=== PATIENT | female | born 1995 | race Two or more races ===

== ENCOUNTER 2017-01-22 23:37 | Observation (INO) | payer SELFPAY ==
[2014-10-30 16:40] VITALS: BP 102/68
[~2017-01-22 23:37] MED LIST: ACET-704 PO; IBUP-1060 PO
[2017-01-23 04:23] LABS: BILIRUBIN,URINE NEGATIVE (NEG); GLUCOSE,URINE NEGATIVE (NEG); NITRITE,URINE NEGATIVE (NEG); PROTEIN,URINE NEGATIVE (NEG-TRACE); UROBILINOGEN,URINE 0.2 mg/dL (0.2 mg/dL)
[2017-01-23 04:30] LABS: BARBITURATES NEG (NEG); BENZODIAZEPINES NEG (NEG); CANNABINOIDS NEG (NEG); COCAINE NEG (NEG); METHADONE NEG (NEG); OPIATES NEG (NEG); PHENCYCLIDINE NEG (NEG)
[2017-01-23 04:50] LABS: BACTERIA,URINE MODERATE /HPF (0-FEW); RBC,URINE 0 /HPF (0-2); SQUAMOUS EPITHELIAL CELL,UR FEW /LPF; WBC,URINE OCC /HPF (0-4)
== END 2017-01-23 01:30 | disposition home or self-care (01) ==
LOC: 3 SO LND 23:37
PROVIDERS: ADMIT Specialist; ATTEND Specialist
DX: O62.9 Abnormality of forces of labor, unspecified (principal); Z3A.37 37 weeks gestation of pregnancy
CPT/HCPCS: 81001; 87086; G0378; G0379; G0481

== ENCOUNTER 2017-02-01 23:17 | Inpatient (IN) | payer SELFPAY ==
[~2017-02-01] VITALS: Ht 152.4 cm; Wt 51.3 kg
[2017-02-01] MEDS ORDERED: 0.9 % SODIUM CHLORIDE 10 ML DISP.SYRIN. IV PRN (23:45)
[2017-02-01] MEDS ORDERED: fentaNYL PF VIAL 100 MCG/2 ML VIAL IV PRN (23:45)
[2017-02-01] MEDS ORDERED: LIDOCAINE 1% PF 30 ML VIAL. INJ PRN (23:45)
[2017-02-01] MEDS ORDERED: MAG HYDROX/ALUMINUM HYD/SIMETH 30 ML ORAL.SUSP PO PRN (23:45)
[2017-02-01] MEDS ORDERED: TERBUTALINE 1 MG/ML VIAL. SQ PRN (23:45)
[2017-02-01] MEDS ORDERED: ZOLPIDEM 5 MG TABLET. PO PRN (23:45)
[2017-02-01] MEDS ORDERED: ACETAMINOPHEN 325 MG TABLET. PO PRN (23:45)
[2017-02-01] MEDS ORDERED: IBUPROFEN 800 MG TABLET. PO PRN (23:45)
[2017-02-01] MEDS ORDERED: BUTORPHANOL 2 MG/ML VIAL. IV PRN (23:45)
[2017-02-01] MEDS ORDERED: OXYTOCIN 30 UNIT/500 ML PREMIX 500 ML IV PRN (23:45)
[2017-02-01] MEDS ORDERED: CITRIC ACID/SODIUM CITRATE 30 ML SOLUTION. PO PRN (23:45)
[2017-02-01] MEDS ORDERED: ONDANSETRON PF 4 MG/2 ML VIAL. IV PRN (23:45)
[2017-02-02] VITALS: BP 115/70
[2017-02-02] MEDS ORDERED: AMPICILLIN SODIUM 2 GM in IV NORMAL SALINE 100ML 100 ML IV ONE ×2
[2017-02-02 00:02] LABS: BILIRUBIN,URINE NEGATIVE (NEG); GLUCOSE,URINE NEGATIVE (NEG); NITRITE,URINE NEGATIVE (NEG); PROTEIN,URINE NEGATIVE (NEG-TRACE)
[2017-02-02 00:08] LABS: BARBITURATES NEG (NEG); BENZODIAZEPINES NEG (NEG); CANNABINOIDS NEG (NEG); COCAINE NEG (NEG); METHADONE NEG (NEG); OPIATES NEG (NEG); PHENCYCLIDINE NEG (NEG)
[2017-02-02] MEDS: IV RINGERS,LACTATED 1000ML 1,000 ML IV SCH ×4 (00:08→07:37)
[2017-02-02 00:11] LABS: BACTERIA,URINE MODERATE /HPF (0-FEW); RBC,URINE 0 /HPF (0-2); SQUAMOUS EPITHELIAL CELL,UR MOD /LPF
[2017-02-02 01:01] LABS: HEMATOCRIT 30.2 % (36.0-47.0); HEMOGLOBIN 10.1 g/dL (12.0-15.5); RED BLOOD COUNT 3.74 x10^6/uL (3.50-5.40); RED CELL DISTRIBUTION WIDTH 13.1 % (11.5-14.5); WHITE BLOOD COUNT 10.9 x10^3/uL (4.0-11.0)
[2017-02-02] MEDS ORDERED: PNV1TABL25 PO (01:05)
[2017-02-02 02:00] LABS: ALBUMIN/GLOBULIN RATIO 0.7 (1.0-1.7); CALCIUM 8.8 mg/dL (8.5-10.1); CREATININE 0.6 mg/dL (0.6-1.0); GFR 127.5; POTASSIUM 3.8 mmol/L (3.5-5.1); TOTAL BILIRUBIN 0.5 mg/dL (0.2-1.0); TOTAL PROTEIN 7.1 g/dL (6.4-8.2)
[2017-02-02] MEDS ORDERED: ROPIVacaine 0.2% IN 0.9%NACL PF 40 MG/20 ML DISP.SYRIN. ONE (02:13)
[2017-02-02] MEDS ORDERED: L&D EPIDURAL CASSETTE 100 ML EP ONE (02:13)
[2017-02-02] MEDS ORDERED: ePHEDrine PF IN SALINE 50 MG/5 ML DISP.SYRIN IV PRN (02:45)
[2017-02-02] MEDS ORDERED: NALOXONE 0.4 MG/ML VIAL. IV PRN (02:45)
[2017-02-02] MEDS ORDERED: fentaNYL PF VIAL 100 MCG/2 ML VIAL EPI ONE (02:45)
[2017-02-02] MEDS ORDERED: ONDANSETRON PF 4 MG/2 ML VIAL. IV PRN (02:45)
[2017-02-02] MEDS ORDERED: ROPIVacaine 0.2% PF 10 ML VIAL. EPI ONE (02:45)
[2017-02-02] MEDS: L&D EPIDURAL CASSETTE 100 ML EP PRN ×2 (02:48→08:47)
[2017-02-02] MEDS: AMPICILLIN SODIUM 1 GM in IV NORMAL SALINE 50ML 50 ML IV SCH ×2 (03:53→07:38)
[2017-02-02] MEDS ORDERED: OXYTOCIN in NORMAL SALINE PREMIX 30 UNIT/500 ML BAG. IV ONE (06:30)
[2017-02-02] MEDS ORDERED: BENZOCAINE 20% TOPICAL AEROSOL SPRAY 57GM CAN. TP PRN (09:00)
[2017-02-02] MEDS ORDERED: MAGNESIUM HYDROXIDE 2,400 MG/30 ML ORAL.SUSP. PO PRN (09:00)
[2017-02-02] MEDS ORDERED: ZOLPIDEM 5 MG TABLET. PO PRN (09:00)
[2017-02-02] MEDS ORDERED: PHENYLEPH/MINERAL OIL/PETROLAT RECTAL OINTMENT 28GM TUBE. RC PRN (09:00)
[2017-02-02] MEDS ORDERED: OXYTOCIN 30 UNIT/500 ML PREMIX 500 ML IV PRN (09:00)
[2017-02-02] MEDS ORDERED: MAG HYDROX/ALUMINUM HYD/SIMETH 30 ML ORAL.SUSP PO PRN (09:00)
[2017-02-02] MEDS ORDERED: ACETAMINOPHEN 325 MG TABLET. PO PRN (09:00)
[2017-02-02] MEDS ORDERED: HYDROCORTISONE 1% TOPICAL OINTMENT 30GM TUBE. TP PRN (09:00)
[2017-02-02] MEDS ORDERED: HYDROcodone/APAP 5/325MG 1 TAB TABLET PO PRN (09:00)
[2017-02-02] MEDS ORDERED: SIMETHICONE 80 MG TAB.CHEW PO PRN (09:00)
[2017-02-02] MEDS ORDERED: 0.9 % SODIUM CHLORIDE 10 ML DISP.SYRIN. IV PRN (09:00)
[2017-02-02] MEDS ORDERED: diphenhydrAMINE HCL 25 MG CAPSULE PO PRN (09:00)
--- NOTE | 2017-02-02 09:02 | PDOC1 ---
OB - History Hx of Present Care: Good Care Ultrasounds: Normal mid trimester US Obstetrical Complications: None Medical Complications: None Past Family/Social History * Past Medical, Surgical, Family and Obstetric Histories reviewed from chart. Blood Type: O+ Rubella: Immune RPR/VDRL: Negative HBsAG: Negative OB - Chief Complaint & HPI Date of Admission: Date of Admission: Feb 01, 2017 at 23:17 Chief Complaint/History : 4 Para: 2 EDC: Feb 06, 2017 Reason for admission: active labor Admission Nurse Assessment Rev: Yes Problems: OB - Admission Exam Physical Exam Vitals: VS - Last 72 Hours, by Label Date Time Temp Pulse Resp B/P (MAP) Pulse Ox O2 Delivery O2 Flow Rate FiO2 02/02/17 08:47 18 Room Air 02/02/17 03:15 18 99 Room Air 02/02/17 02:48 18 99 Room Air 02/02/17 00:50 18 Room Air 02/02/17 00:13 18 99 Room Air 02/02/17 00:00 97.6 122 18 115/70 (85) 99 Room Air 97.6 HEENT: Normal, Nasal Mucosa Normal, Oropharynx Normal, Moist Membranes, Fontanelles Normal Heart: Regular Rate Lungs: Clear, Equal Abdomen: Gravid Extremities: Normal Pulses, No tenderness or swelling Reflexes: Normal Cervical Dilatation: 3cm Effacement: 50% Station: -1 Membranes: Intact Amniotic Fluid: Clear Heart Rate: Normal Accelerations: Accelerations Present Decelerations: No decelerations Short Term Variability: Present Alf Variability: Moderate Contractions on Admission: < 5 Minutes Apart Intensity: Moderate Assessment/Plan Assessment/Plan TIUP labor ACS JUNG BLEDSOE MD Feb 02, 2017 09:02
[2017-02-02] MEDS: IBUPROFEN 800 MG TABLET. PO SCH ×2 (11:52→22:00)
[2017-02-02 12:00] VITALS: BP 134/66
[2017-02-02 13:30] VITALS: BP 105/55
[2017-02-02 16:25] VITALS: BP 109/52
[2017-02-02 23:00] VITALS: BP 108/67
[2017-02-03 05:19] LABS: RPR REFLEX Non Reactive (Non Reactive)
[2017-02-03] MEDS: IBUPROFEN 800 MG TABLET. PO SCH ×3 (06:00→18:14)
[2017-02-03 06:15] VITALS: BP 107/69
[2017-02-03 08:05] VITALS: BP 100/55
[2017-02-03] MEDS: FERROUS SULFATE 325 MG TABLET. PO SCH ×2 (08:10→18:14)
[2017-02-03 11:50] VITALS: BP 102/60
--- NOTE | 2017-02-03 13:08 | PDOC ---
Provider Note Provider Note Doing well VSS uterus NTTP FU in AM JUNG BLEDSOE MD Feb 03, 2017 13:07
[2017-02-03 16:50] VITALS: BP 109/74
[2017-02-03 20:00] VITALS: BP 115/82
[2017-02-04 04:00] VITALS: BP 114/80
--- NOTE | 2017-02-04 05:01 | PDOC3 ---
OB DISCHARGE SUMMARY DATE OF ADMISSION: 02/02/17 DATE OF DISCHARGE: 02/04/17 REASON FOR ADMISSION: Onset of labor PROCEDURES: Ultrasound INTRAPARTUM PROCEDURES: Spontanous Vag Deliv PROCEDURES: None OPERATIONS: None DISCHARGE DIAGNOSIS: Term Delivered DISCHARGE INFORMATION: Activity, Diet HOSPITAL COURSE unremarkable CONDITION AT DISCHARGE stable JUNG BLEDSOE MD Feb 04, 2017 05:01
[2017-02-04] MEDS ORDERED: HYDR-971 PO (05:02)
[2017-02-04] MEDS ORDERED: NAPR500T3 PO (05:02)
--- NOTE | 2017-02-04 05:46 | PDOC ---
VAGINAL DELIVERY DATE DATE: 02/04/17 TIME: 05:44 : 4 Para: 3 EDC: Feb 06, 2017 VAGINAL DELIVERY: VTX VACCUM ASSISTED: No PLACENTA: Spontaneous SEX: Female WEIGHT 5/15 Nuchal Cord: No Amniotic Fluid: Clear PAIN: Epidural EPISIOTOMY: No EXTENSION: No EBL 300cc COMPLICATIONS none CONDITION Stable Signs of Intrauterine Infectio: None Shoulder Dystocia: No DIAGNOSIS TIUP del Problems: JUNG BLEDSOE MD Feb 04, 2017 05:46
[2017-02-04 08:00] VITALS: BP 114/73
[2017-02-04] MEDS: IBUPROFEN 800 MG TABLET. PO SCH (08:05)
[2017-02-04] MEDS: FERROUS SULFATE 325 MG TABLET. PO SCH (08:05)
[2017-02-04 13:30] VITALS: BP 112/72
== END 2017-02-04 13:30 | disposition home or self-care (01) | DRG 775 ==
LOC: OBSVTOIN 23:17 → 3 SO LND 23:17 → 3 NORTH 02-02 12:00
PROVIDERS: ADMIT Specialist; ATTEND Specialist
PROC: 10E0XZZ Delivery of Products of Conception, External Approach (ICD-10-PCS; principal; 2017-02-01)
DX: O80 Encounter for full-term uncomplicated delivery (principal); Z3A.39 39 weeks gestation of pregnancy; Z37.0 Single live birth
CPT/HCPCS: 36415; 80053; 81001; 85014; 85027; 86593; 86850; 86900; 86901; 87086; G0481; J0290; J2590; J2795; J7120

== ENCOUNTER → 2020-12-21 | Outpatient (CLI) | payer SELFPAY ==
[2019-01-22 12:14] VITALS: BP 118/77
[~2020-12-21] MED LIST changes: +HYDR-3164 PO; +NAPR-514 PO; +PNV1TABL25 PO
== END ==
LOC: LAB 12:41
PROVIDERS: ATTEND Obstetrics & Gynecology
DX: Z01.812 Encounter for preprocedural laboratory examination (principal); Z20.822 Contact with and (suspected) exposure to COVID-19
CPT/HCPCS: U0003; U0005

== ENCOUNTER 2020-12-22 20:57 | Inpatient (IN) | payer SELFPAY ==
[~2020-12-22] VITALS: Ht 160 cm; Wt 54.4 kg
[2020-12-22] MEDS ORDERED: IV NORMAL SALINE 1000ML BAG 1,000 ML IV PRN (21:00)
[2020-12-22] MEDS ORDERED: OXYTOCIN 30 UNIT/500 ML PREMIX 500 ML IV PRN ×2 (21:00)
[2020-12-22] MEDS ORDERED: 0.9 % SODIUM CHLORIDE 10 ML DISP.SYRIN. IV PRN (21:00)
[2020-12-22] MEDS ORDERED: ACETAMINOPHEN 325 MG TABLET. PO PRN (21:00)
[2020-12-22] MEDS ORDERED: LIDOCAINE 1% PF 30 ML VIAL. INJ PRN (21:00)
[2020-12-22] MEDS ORDERED: TERBUTALINE 1 MG/ML VIAL. SQ PRN (21:00)
[2020-12-22] MEDS ORDERED: BUTORPHANOL 2 MG/ML VIAL. IVP PRN ×2 (21:00)
[2020-12-22 21:32] LABS: BASO # 0.1 x10^3/uL (0.0-0.2); BASO % 1 % (0-3); EOS # 0.1 x10^3/uL (0.0-0.7); EOS % 1 % (0-3); HEMATOCRIT 34.4 % (36.0-47.0); HEMOGLOBIN 11.4 g/dL (12.0-15.5); LYMPH # 2.8 x10^3/uL (1.0-4.8); LYMPH % 20 % (24-48); MEAN CORPUSCULAR HEMOGLOBIN 28 pg (25-35); MEAN CORPUSCULAR HGB CONC 33 g/dL (31-37); MEAN CORPUSCULAR VOLUME 84 fL (79-100); MONO # 0.9 x10^3/uL (0.0-1.1); MONO % 6 % (0-9); NEUT # 10.1 x10^3/uL (1.8-7.7); NEUT % 73 % (31-73); PLATELET COUNT 281 x10^3/uL (140-400); RED BLOOD COUNT 4.11 x10^6/uL (3.50-5.40); WHITE BLOOD COUNT 13.9 x10^3/uL (4.0-11.0)
[2020-12-22 21:36] LABS: BILIRUBIN,URINE NEGATIVE (NEG); CLARITY,URINE CLEAR; COLOR,URINE YELLOW; NITRITE,URINE NEGATIVE (NEG); PROTEIN,URINE NEGATIVE (NEG-TRACE); UROBILINOGEN,URINE 0.2 mg/dL (0.2 mg/dL)
[2020-12-22 21:42] LABS: BARBITURATES NEG (NEG); BENZODIAZEPINES NEG (NEG); CANNABINOIDS NEG (NEG); COCAINE NEG (NEG); METHADONE NEG (NEG); OPIATES NEG (NEG); PHENCYCLIDINE NEG (NEG)
[2020-12-22 21:43] LABS: AMPHETAMINE/METHAMPHETAMINE NEG (NEG); BACTERIA,URINE MODERATE /HPF (0-FEW)
[2020-12-22 21:44] LABS: RBC,URINE 0 /HPF (0-2); WBC,URINE OCC /HPF (0-4)
[2020-12-22 21:55] VITALS: BP 102/68
[2020-12-22] MEDS ORDERED: ROPIVacaine 0.2% PF 10 ML VIAL. ONE ×2 (22:28→23:00)
[2020-12-22] MEDS ORDERED: fentaNYL PF VIAL 100 MCG/2 ML VIAL ONE (22:28)
[2020-12-22] MEDS ORDERED: L&D EPIDURAL SYRINGE 50 ML ONE (22:28)
[2020-12-22] MEDS: IV RINGERS,LACTATED 1000ML 1,000 ML IV SCH ×2 (22:36→22:37)
[2020-12-22] MEDS ORDERED: L&D EPIDURAL 50 ML SYRINGE. ONE (23:00)
--- NOTE | 2020-12-23 01:20 | PDOC ---
VAGINAL DELIVERY DATE DATE: 12/23/20 TIME: 01:20 TIME Patient delivered a viable female over intact perineum at 0114. Wt 5 lb 9 oz. Apgars 8/9. Placenta delivered spontaneously, intact with 3VC. No lacerations noted. Good hemostasis noted. 20 U of Pit given with IVF. EBL 100cc. WEIGHT Weight [ ] ROSY GUERRERO MD Dec 23, 2020 01:20
--- NOTE | 2020-12-23 01:20 | PDOC1 ---
POUNCER MACHINE H&P Date of Admission: Date of Admission: Dec 22, 2020 at 20:57 History of Present Illness: EDC: 12/30/20 LMP: 06/23/20 25y @ 38.6 by L=5 presents to L&D for ctxs. She was scheduled for an indxn the following day. On presentation the pt was found to be 4 cm dilated. The pt has had a relatively uncomplicated . PMH: Denies PSH: Denies Meds: PNV, Fe All: NKDA OBHx: TSVD x 4 SH: no tob, no EtOH FH: noncontributory Medications: Meds: Current Medications Medications (Trade) Dose Ordered Sig/Arlene Route PRN Reason Start Time Stop Time Status Last Admin Dose Admin Ringer's Solution 1,000 ml @ 125 mls/hr Q8H IV 12/22/20 21:00 12/22/20 22:37 Allergies: Coded Allergies: No Known Drug Allergies (Unverified , 12/21/13) Physical Exam: Vital Signs: Vital Signs Date Time Temp Pulse Resp B/P (MAP) Pulse Ox O2 Delivery O2 Flow Rate FiO2 12/22/20 21:55 98.1 102 20 102/68 (79) Room Air 98.1 PE: GENERAL: No apparent distress. Alert and oriented. HEENT: Head normocephalic, atraumatic. NECK: Supple LUNGS: Clear to auscultation. HEART: RRR, S1, S2 present, pulses intact ABDOMEN: Soft, positive bowel sounds. EXTREMITIES: No cyanosis or edema. NEUROLOGIC: Normal speech, normal tone PSYCHIATRIC: Normal affect, normal mood. SKIN: No ulceration. FHT: 130s +acels/no decels/mLTV [place]: 2 min SVE: 7/90/-2 Labs: Laboratory Tests Test 12/22/20 21:00 12/22/20 21:21 Urine Collection Type Unknown Urine Color Yellow Urine Clarity Clear Urine pH 7.0 (<5.0-8.0) Urine Specific [place] 1.015 (1.000-1.030) Urine Protein Negative mg/dL (NEG-TRACE) Urine Glucose (UA) Negative mg/dL (NEG) Urine Ketones (Stick) Negative mg/dL (NEG) Urine Blood Negative (NEG) Urine Nitrite Negative (NEG) Urine Bilirubin Negative (NEG) Urine Urobilinogen Dipstick 0.2 mg/dL (0.2 mg/dL) Urine Leukocyte Esterase Negative (NEG) Urine RBC 0 /HPF (0-2) Urine WBC Occ /HPF (0-4) Urine Squamous Epithelial Cells Mod /LPF Urine Bacteria Moderate /HPF (0-FEW) Urine Opiates Screen Neg (NEG) Urine Methadone Screen Neg (NEG) Urine Barbiturates Neg (NEG) Urine Phencyclidine Screen Neg (NEG) Urine Amphetamine/Methamphetamine Neg (NEG) Urine Benzodiazepines Screen Neg (NEG) Urine Cocaine Screen Neg (NEG) Urine Cannabinoids Screen Neg (NEG) Urine Ethyl Alcohol Neg (NEG) White Blood Count 13.9 x10^3/uL (4.0-11.0) H Red Blood Count 4.11 x10^6/uL (3.50-5.40) Hemoglobin 11.4 g/dL (12.0-15.5) L Hematocrit 34.4 % (36.0-47.0) L Mean Corpuscular Volume 84 fL (79-100) Mean Corpuscular Hemoglobin 28 pg (25-35) Mean Corpuscular Hemoglobin Concent 33 g/dL (31-37) Red Cell Distribution Width 13.0 % (11.5-14.5) Platelet Count 281 x10^3/uL (140-400) Neutrophils (%) (Auto) 73 % (31-73) Lymphocytes (%) (Auto) 20 % (24-48) L Monocytes (%) (Auto) 6 % (0-9) Eosinophils (%) (Auto) 1 % (0-3) Basophils (%) (Auto) 1 % (0-3) Neutrophils # (Auto) 10.1 x10^3/uL (1.8-7.7) H Lymphocytes # (Auto) 2.8 x10^3/uL (1.0-4.8) Monocytes # (Auto) 0.9 x10^3/uL (0.0-1.1) Eosinophils # (Auto) 0.1 x10^3/uL (0.0-0.7) Basophils # (Auto) 0.1 x10^3/uL (0.0-0.2) Laboratory Tests 12/22/20 21:21 Laboratory Tests 12/22/20 21:21 Assessment & Plan: A/P 25y @ 38.6 by L=5 1.) Active labor 2.) Anemia - Hgb 9.9, on Fe 3.) Gap in care b/t 16-31 wk 4.) Flu vaccine given 06/23/21 5.) TDAP given 10/28/20 6.) Fetus cat I FHT 7.) GBS neg ROSY GUERRERO MD Dec 23, 2020 01:20
[2020-12-23] MEDS ORDERED: OXYTOCIN 30 UNIT/500 ML PREMIX 500 ML IV PRN (01:30)
[2020-12-23] MEDS ORDERED: PHENYLEPH/MINERAL OIL/PETROLAT RECTAL OINTMENT TUBE. RC PRN (01:30)
[2020-12-23] MEDS ORDERED: 0.9 % SODIUM CHLORIDE 10 ML DISP.SYRIN. IV PRN (01:30)
[2020-12-23] MEDS ORDERED: BENZOCAINE 20% TOPICAL AEROSOL SPRAY 57GM CAN. TP PRN (01:30)
[2020-12-23] MEDS ORDERED: TDaP (Adacel) per PROTOCOL. MC PRN (01:30)
[2020-12-23] MEDS ORDERED: ZOLPIDEM 5 MG TABLET. PO PRN (01:30)
[2020-12-23] MEDS ORDERED: MAGNESIUM HYDROXIDE 2,400 MG/30 ML ORAL.SUSP. PO PRN (01:30)
[2020-12-23] MEDS ORDERED: MAG HYDROX/ALUMINUM HYD/SIMETH 30 ML ORAL.SUSP PO PRN (01:30)
[2020-12-23] MEDS ORDERED: MMR per PROTOCOL. MC PRN (01:30)
[2020-12-23] MEDS ORDERED: diphenhydrAMINE HCL 25 MG CAPSULE PO PRN (01:30)
[2020-12-23] MEDS ORDERED: HYDROCORTISONE 1% TOPICAL OINTMENT 30GM TUBE. TP PRN (01:30)
[2020-12-23] MEDS ORDERED: ACETAMINOPHEN 325 MG TABLET. PO PRN (01:30)
[2020-12-23] MEDS ORDERED: oxyCODONE/APAP 5/325 1 TAB TABLET PO PRN (01:30)
[2020-12-23] MEDS ORDERED: SIMETHICONE 80 MG TAB.CHEW PO PRN (01:30)
[2020-12-23] MEDS: IBUPROFEN 400 MG TABLET. PO PRN ×3 (03:17→19:42)
[2020-12-23 03:30] VITALS: BP 113/55
[2020-12-23 04:37] VITALS: BP 107/46
[2020-12-23 07:50] VITALS: BP 91/47
[2020-12-23] MEDS: DOCUSATE SODIUM 100 MG CAPSULE. PO PRN (09:42)
[2020-12-23] MEDS: PRENATAL MULTIVITAMIN TABLET. PO SCH (09:42)
[2020-12-23 12:10] VITALS: BP 114/57
[2020-12-23 16:15] VITALS: BP 113/54
[2020-12-23 19:50] VITALS: BP 96/54
[2020-12-24 04:38] VITALS: BP 101/56
[2020-12-24 04:50] LABS: HEMATOCRIT 32.6 % (36.0-47.0); HEMOGLOBIN 10.8 g/dL (12.0-15.5); RED BLOOD COUNT 3.86 x10^6/uL (3.50-5.40); RED CELL DISTRIBUTION WIDTH 13.1 % (11.5-14.5); WHITE BLOOD COUNT 15.4 x10^3/uL (4.0-11.0)
[2020-12-24] MEDS: DOCUSATE SODIUM 100 MG CAPSULE. PO PRN ×2 (07:15→20:54)
[2020-12-24] MEDS: PRENATAL MULTIVITAMIN TABLET. PO SCH (07:16)
[2020-12-24] MEDS: IBUPROFEN 400 MG TABLET. PO PRN ×3 (07:16→21:53)
[2020-12-24 07:30] VITALS: BP 109/59
[2020-12-24] MEDS ORDERED: FERROUS SULFATE 325 MG TABLET. PO SCH (08:00)
--- NOTE | 2020-12-24 09:37 | PDOC ---
BREAKER UP MACHINE OPERATOR PROGRESS NOTE Date of Service: DATE: 12/24/20 TIME: 09:36 Subjective: Pt with good pain control. Pradip PO. Voiding. Minimal lochia Objective: Vital Signs: Vital Signs Date Time Temp Pulse Resp B/P (MAP) Pulse Ox O2 Delivery O2 Flow Rate FiO2 12/23/20 07:50 98.0 72 16 91/47 (62) 99 Room Air 98.0 Vital Signs Date Time Temp Pulse Resp B/P (MAP) Pulse Ox O2 Delivery O2 Flow Rate FiO2 12/24/20 07:30 97.7 68 18 109/59 (76) 97 Room Air 97.7 Labs: Laboratory Tests Test 12/24/20 04:32 White Blood Count 15.4 x10^3/uL (4.0-11.0) H Red Blood Count 3.86 x10^6/uL (3.50-5.40) Hemoglobin 10.8 g/dL (12.0-15.5) L Hematocrit 32.6 % (36.0-47.0) L Mean Corpuscular Volume 84 fL (79-100) Mean Corpuscular Hemoglobin 28 pg (25-35) Mean Corpuscular Hemoglobin Concent 33 g/dL (31-37) Red Cell Distribution Width 13.1 % (11.5-14.5) Platelet Count 250 x10^3/uL (140-400) Laboratory Tests 12/24/20 04:32 Laboratory Tests 12/24/20 04:32 Physical Exam: GENERAL: No apparent distress. Alert and oriented. HEENT: Head normocephalic, atraumatic. NECK: Supple LUNGS: Clear to auscultation. HEART: RRR, S1, S2 present, pulses intact ABDOMEN: Soft, positive bowel sounds. EXTREMITIES: No cyanosis or edema. NEUROLOGIC: Normal speech, normal tone PSYCHIATRIC: Normal affect, normal mood. SKIN: No ulceration. FFNT below umb No C/C/E Assessment & Plan: A/P 25y PPD #1 s/p 1.) PP doing well 2.) Anemia - Hgb 11.4 -> 10.8 3.) Flu vaccine given 06/23/21 4.) TDAP given 10/28/20 5.) Cont PP ROSY Ricketts MD Dec 24, 2020 09:37
[2020-12-24 13:00] VITALS: BP 125/66
[2020-12-24 16:38] VITALS: BP 114/55
[2020-12-24 20:45] VITALS: BP 109/56
[2020-12-25] MEDS: IBUPROFEN 400 MG TABLET. PO PRN (06:10)
[2020-12-25 06:14] VITALS: BP 108/72
[2020-12-25 08:30] VITALS: BP_SYST 101; BP_SYST 136; BP_DIAS 59; BP_DIAS 73
[2020-12-25] MEDS ORDERED: IBUP-1060 PO (09:18)
[2020-12-25] MEDS ORDERED: DOCU-109 PO (09:18)
--- NOTE | 2020-12-25 09:49 | PDOC ---
NUCLEAR POWERPLANT MECHANIC HELPER PROGRESS NOTE Date of Service: DATE: 12/25/20 TIME: 09:48 Subjective: Pt with good pain control. Pradip PO. Voiding. Minimal lochia Objective: Vital Signs: Vital Signs Date Time Temp Pulse Resp B/P (MAP) Pulse Ox O2 Delivery O2 Flow Rate FiO2 12/24/20 07:30 97.7 68 18 109/59 (76) 97 Room Air 97.7 Vital Signs Date Time Temp Pulse Resp B/P (MAP) Pulse Ox O2 Delivery O2 Flow Rate FiO2 12/25/20 08:30 98.4 81 18 101/59 (73) 99 Room Air 98.4 Physical Exam: GENERAL: No apparent distress. Alert and oriented. HEENT: Head normocephalic, atraumatic. NECK: Supple LUNGS: Clear to auscultation. HEART: RRR, S1, S2 present, pulses intact ABDOMEN: Soft, positive bowel sounds. EXTREMITIES: No cyanosis or edema. NEUROLOGIC: Normal speech, normal tone PSYCHIATRIC: Normal affect, normal mood. SKIN: No ulceration. FFNT below umb No C/C/E Assessment & Plan: A/P 25y PPD #2 s/p 1.) PP doing well 2.) Anemia - Hgb 11.4 -> 10.8 3.) Flu vaccine given 06/23/21 4.) TDAP given 10/28/20 5.) D/c home ROSY GUERRERO MD Dec 25, 2020 09:49
--- NOTE | 2020-12-25 10:10 | DS ---
DATE OF DISCHARGE: 12/25/2020 ADMISSION DIAGNOSES: 1. Intrauterine at 38 weeks and 6 days by last menstrual period, equal to 5-week ultrasound. 2. Active labor. 3. Anemia. 4. Gap in care between 16-31 weeks. 5. Status post flu vaccine. 6. Status post Tdap. 7. GBS negative. DISCHARGE DIAGNOSES: 1. Intrauterine at 38 weeks and 6 days by last menstrual period, equal to 5-week ultrasound. 2. Active labor. 3. Anemia. 4. Gap in care between 16-31 weeks. 5. Status post flu vaccine. 6. Status post Tdap. 7. GBS negative. PROCEDURE: Spontaneous vaginal delivery. BRIEF HOSPITAL COURSE: The patient is a 25-year-old 7, para 4-0-2-4, who presented to Labor and Delivery at 38 weeks and 6 days by LMP, equal to a 5-week ultrasound with contractions. The patient was on the schedule for an induction the following day. On presentation, the patient was found to be 4 cm. The patient's had been relatively uncomplicated. The patient progressed and ultimately delivered by vaginal delivery. See delivery note for full detail. By day #2, the patient was meeting all discharge criteria and was subsequently discharged home. Of note, the patient's hemoglobin on admission was 11.4 and after delivery, was found to be 10.8. DISCHARGE INSTRUCTIONS: The patient was told not to lift anything greater than 20 pounds and pelvic rest for 6 weeks. CALL IF: The patient was to call if she had fevers, chills, nausea, vomiting, abdominal pain, or any additional questions or concerns. FOLLOWUP APPOINTMENT: The patient is to follow up on 02/02 at 1:00 p.m. for a visit. DISCHARGE MEDICATIONS: The patient was given a prescription for Motrin 800 mg 30 pills and Colace [address]: Carter TID: [id number]
[2020-12-25 10:45] VITALS: BP 120/67
== END 2020-12-25 11:51 | disposition home or self-care (01) | DRG 807 ==
LOC: 3 SO LND 20:57 → OBSVTOIN 20:57
PROVIDERS: ADMIT Obstetrics & Gynecology; ATTEND Obstetrics & Gynecology
PROC: 10E0XZZ Delivery of Products of Conception, External Approach (ICD-10-PCS; principal; 2020-12-23)
DX: O99.02 Anemia complicating childbirth (principal); Z37.0 Single live birth; D64.9 Anemia, unspecified; Z3A.38 38 weeks gestation of pregnancy
CPT/HCPCS: 36415; 80307; 81001; 85025; 85027; 86592; 86850; 86900; 86901; 87086; J2590; J2795; J3010; J7120; G0378